=== PATIENT | male | born 1980 | race African-American/Black ===

== ENCOUNTER 2016-10-04 11:07 | Outpatient (CLI) | payer OTHER ==
[2016-10-04 11:18] LABS: BASOPHILS % 1.2 (0.0-1.5); EOSINOPHILS % 2.5 % (0.0-6.8); MEAN CORPUSCULAR HEMOGLOBIN 28.8 pg (28.0-34.0); MEAN CORPUSCULAR VOLUME 86.1 fl (80.0-100.0); MONOCYTES % 6.4 % (0.0-11.0); NEUTROPHILS # 2.6 # k/uL (1.4-7.7)
[2016-10-04 11:29] LABS: eGFR (African) > 60; eGFR (Non-African) > 60
== END 2016-10-04 11:10 ==
LOC: LAB 11:07
PROVIDERS: ATTEND General Practice
DX: R40.4 Transient alteration of awareness (principal)
CPT/HCPCS: 80053; 85025